=== PATIENT | male | born 1950 | race African-American/Black ===

== ENCOUNTER 2019-05-19 15:50 | Inpatient (IN) | payer OTHER ==
[~2019-05-19] VITALS: Ht 167.6 cm; Wt 99.5 kg
[2019-05-19 15:51] VITALS: BP 151/93
[2019-05-19 16:22] LABS: ABSOLUTE NEUTROPHILS 3.1 thou/uL (1.4-8.2); BASOPHILS 0.5 % (0.0-2.0); EOSINOPHILS 1.3 % (0.0-3.0); HEMOGLOBIN 13.4 gm/dL (14.0-18.0); LYMPHOCYTES 31.1 % (24.0-44.0); MCH 28.9 pg (26.0-34.0); MCHC 32.8 g/dL (28.0-37.0); MONOCYTES 10.2 % (1.0-8.0); PLATELET COUNT 197 thou/uL (150-400); POLYS 56.9 % (36.0-66.0); RBC 4.66 mil/uL (4.50-6.00); RDW 14.4 % (10.5-14.5); WBC 5.4 thou/uL (4.0-11.0)
[2019-05-19 16:30] LABS: URINE BILIRUBIN NEGATIVE (Negative); URINE BLOOD NEGATIVE (Negative); URINE CLARITY CLEAR; URINE COLOR YELLOW; URINE GLUCOSE-RANDOM* NEGATIVE (Negative); URINE KETONES TRACE (Negative); URINE LEUKOCYTES-REFLEX NEGATIVE (Negative); URINE NITRITE-REFLEX NEGATIVE (Negative); URINE PROTEIN (DIPSTICK) NEGATIVE (Negative); URINE UROBILINOGEN 0.2 E.U./dl (0.2-1.0)
[2019-05-19 16:33] LABS: CALCIUM 9.7 mg/dL (8.5-10.1); CREATININE 1.3 mg/dL (0.7-1.3); POTASSIUM 4.4 mmol/L (3.5-5.1)
[2019-05-19 16:38] LABS: AMP/METHAMP Negative (Negative); BARBITURATES Negative (Negative); BENZODIAZEPINES Negative (Negative); COCAINE Negative (Negative); METHADONE Negative (Negative); OPIATES Negative (Negative); PCP Negative (Negative)
[2019-05-19 16:55] VITALS: BP 140/77
[2019-05-19 20:18] VITALS: BP 123/61
[2019-05-19] MEDS ORDERED: DEPAKOTE500 MG PO (20:23)
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
--- NOTE | 2019-05-19 20:59 | NUR ---
BP RECHECK AT 1999 140/84-DENIES THOMAS,VISUAL DISTURBANCE ETC. GAIT SLIGHTLY UNSTEADY DESPITE USE OF ROLLER WALKER-SBA PROVIDED-GIVEN LATE SUPPER-COOPERATIVE AND APPRECIATIVE OF CARES
[2019-05-19 23:00] VITALS: BP 123/61
[2019-05-20] VITALS: BP 123/61
[2019-05-20 03:41] VITALS: BP 123/61
[2019-05-20 08:00] VITALS: BP 135/94
[2019-05-20 09:10] VITALS: BP 135/94
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
[2019-05-20 11:30] LABS: ALBUMIN 3.3 g/dL (3.4-5.0); DIRECT BILIRUBIN < 0.1 mg/dL (<0.1-0.3); SGOT 52 U/L (15-37); SGPT 34 U/L (30-65); TOTAL BILIRUBIN 0.3 mg/dL (<0.1-1.0)
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
--- NOTE | 2019-05-20 13:37 | NUR ---
ASSUMED CARE AT 0700 THIS MORNING. PT. UP ON THE UNIT IN HOSPITAL GOWN WITHOUT PANTS ON. HE KEPT REFUSING TO PUT ON PANTS STATING, "THE NURSE LASTNIGHT NOLD ME TO NOT WEAR ANY". STAFF TRIED TO EXPLAIN TO HIM THAT NIGHT TIME IN BED IS DIFFERENT THAN DAYTIME ON THE UNIT. HE FINALLY PUT PANTS ON. SEVERAL DR.'S HAVE COME TO SEE HIM TODAY. HE CONTINUES TO BE VERY INFLEXIBLE WHEN IT COMES TO THE WAY HE EATS OR WHAT HE IS DOING. HE HAD COMPANY THIS MORNING WHO INFORMED THE STAFF THAT THE PT. NEEDS TO WATCH THE TENNIS TOURNAMENT FROM END TO END. STAFF ATTEMPTED TO TELL THE FAMILY THE PLACE HAS FAMILY VISITS AND GROUPS THAT THE TELEVISION IS TURNED OFF FOR EACH DAY. THE FAMILY MEMBER SEEMED ANNOYED BY THIS. THE PATIENT ATTEMPTED TO FIND THE TENNIS MATCH HIMSELF, BUT WAS UNABLE TO FIND THE TENNIS AT THIS TIME. THE PATIENT WALKS WITH A WALKER WITH A SHUFFLING GAIT, HEAD DOWN. JOYCE SI/HI OR AVH TODAY.
[2019-05-20 19:34] VITALS: BP 156/99
--- NOTE | 2019-05-20 21:56 | NUR ---
ASSUMED CARE OF THE PT AT 1915PM. ALERT ET ORIENTED X 2. HAS A FLAT AFFECT. MAKES NEEDS KNOWN. TOOK HIS HS MEDICATION WITHOUT ANY DIFFICULTY. LATER IN THE EVENING, HE STATED THAT WAS A GOOD TRANQILIZER THAT I GAVE HIM. WALK TO THE DAYROOM, THEN THIS MEDICAL ASSISTANT INTERNAL MEDICINE WALKED HIM BACK TO BED. HEART RATE REGULAR. LUNGS CLEAR BILATERALLY, RESP., EVEN, AND UNLABORED. +BS HEARD IN ALL 4 QUADRANTS. ABD SOFT, THE PT IS SLIGHTLY OBESE. DENIES PAIN AT THIS TIME. REMAINS ON 12 MINUTE CHECKS FOR HIS SAFETY.
--- NOTE | 2019-05-21 02:17 | NUR ---
THE PT WAS UP WALKING IN THE HALLWAY, BACK AND FORTH. STATED THAT HE WAS GETTING HIS EXCERCISE.
[2019-05-21 09:13] VITALS: BP 155/104
[2019-05-21 09:39] VITALS: BP 161/106
--- NOTE | 2019-05-21 10:32 | NUR ---
PATIENT UP ON UNIT THIS MORNING AT CHANGE OF SHIFT. DROWSY - SITTING WITH HEAD DOWN IN CHAIR. AWOKE FOR BREAKFAST. MAKES NEEDS KNOWN. STATED SLEPT 5 HOURS -DENIED ANY S/I - MOOD DETACHED - AFFECT FLAT. RESPONISVE TO QUESTIONS. CALLED FAMILY MEMBER - CONVERSATION WENT WELL - ALERT - AMBULATES WITH WALKER BUT NEEDS REDIRECTION AT TIMES. SHUFFLES FEET - MEDICATION COMPLIANT. REFUSED STOOL SOFTENER - STATES HAD FEW SOFT BOWEL MOVEMENTS. APPETITE GOOD - REFUSED TO PARTICIPATE IN AM ACTIVITY. FIXATED ON TENNIS AND ANNOYED TELEVISION SHUT OFF.
[2019-05-21 19:42] VITALS: BP 148/92
--- NOTE | 2019-05-21 22:26 | NUR ---
Care assumed of patient at 1900: Patient sitting in day room watching PBS at start of shift. Patient pleasant and cooperative with nurse at that time. Patient alert and oriented x4. Patient became agitated when he was asked why he was admitted to the hospital. Patient started to yell saying that the nurses at his facility are rude and don't like him but he is going to christa them so he doesn't care. Patient slouched, relaxed, flat affect. Denies SI/HI/AH/VH. Another peer attempted to grab and fidget with his seated walker. This patient became upset and yelling that people need to be institutionalized and put in penitentiary. Then started to yell at nurse and stating that nurse is incompetent. Patient was able to be re-directed after a couple minutes, sat back on the couch and continued to watch TV. Patient asked to use the phone and was assisted in calling his friend. Patient took medications whole without difficulty. Patient had to be re-directed to leave door cracked open through the night so he could be monitored. Patient has been resting quietly in his room.
[2019-05-22 08:00] VITALS: BP 156/102
--- NOTE | 2019-05-22 10:51 | EKG ---
[place] [address] [facility] [employer] [place] [address] ELECTROCARDIOGRAM REPORT Name: NOY PICKENS Room #: 527- ADM IN M.R.#: [id number] ������������������ Admission: 05/19/19 ������������������ Attend Phys: Dharmesh Kelly DO Discharge: ������������������ Date of : 48 Report #: [id number] ����������������������������������������������������������������� [id number] THIS REPORT FOR: //name// [facility] Test Date: 2019-05-21 Test Time: 11:44:43 Pat Name: NOY PICKENS Department: Room: [facility] Gender: M Legal Director: Milad GOODSON : 1950 Requested By: Dharmesh Kelly Order Number: [id number] MD: Vj Hernández Measurements Intervals [place] Rate: 86 P: 31 MS: 161 QRS: 13 QRSD: 91 T: 36 QT: 374 QTc: 448 Interpretive Statements Sinus rhythm Nonspecific ST segment abnormality No previous ECG available for comparison Electronically Signed On 05-22-2019 10:50:54 CDT by jV Hernández [email or web address] ��������������������������������������������� <ELECTRONICALLY SIGNED> ���������������������������������������� By: Vj Hernández MD, [facility] ��������������������������������������������� 05/22/19 1050 1144 1144 Vj Hernández MD, FACC /EPI
--- NOTE | 2019-05-22 18:37 | NUR ---
ELEVATED BP VIA MACHINE THIS AM 156/102-RECHECKED MANUALLY AND IS 150/90-DENIES THOMAS,VISUAL DISTURBANCE-COREG 12.5MGPO AT 0800-RECHECK AT 1200 148/84. BLUNTED AFFECT-MILD DELAY TO VERBAL RESPONSES. ON PHONE FREQUENTLY-ENJOYS WATCHING SPORTS ON TV. UP USING ROLLER WALKER GAIT IS RAPID,IMPULSIVE AT TIMES
[2019-05-22 19:25] VITALS: BP 152/94
--- NOTE | 2019-05-23 05:20 | NUR ---
Care assumed of patient at 1900: Patient alert and oriented x4. Patient sitting in day room watching TV. Patient compliant with assessment. States that he is concerned about a tennis tournament that will be on TV 05/23/19. Patient stated that his goal is to be more patient and accepting of other staff and peers. Staff member turned on game show for patients to watch. Patient became very irritated. Stated that she had turned on a morbid show, telling the staff member that she has the IQ of an eggplant. Patient re-directed that he could work on a word search or read his books. Patient demanded that the TV be turned on to what he wants to watch only. After multiple attempts, patient was able to be re-directed. Patient then requested to use the phone to call his friend. Staff dialed friends number which went to [facility]. Patient then requested to call another number. Staff asked for phone number which started out [phone]. Staff asked patient who he is calling. Patient stated "the crisis center". When patient was asked why, he stated that he needed help getting to his room. Patient educated that is what the nursing staff is here to do and he does not need to call the crisis center. Patient then stated he was feeling very anxious. Nurse sat and spoke with patient. Patient encouraged and educated that he needed to find a staff member he could speak with to share his thoughts/fears/feelings. Patient was provided scheduled HS medications with PRN Trazodone. Patient was able to sleep for approximately 3 hours then was up about on the unit. Patient speaking to staff in a sarcastic, disrespectful manner. Patient called one staff Delia because he was old and overweight. Patient then told another nurse she was overweight. Patient told the nurse that she was his maid and "get to work". Patient was upset that he was not able to watch TV. Patient re-directed by journaling or reading books. Patient educated on the importance of a good nights sleep and allowing his body to rest. Patient has obsessive tendencies with how he completes ADLs and where things are located in approximity to him. Patient is reading quietly in day room at this time.
[2019-05-23 07:00] VITALS: BP 142/86
[2019-05-23 07:53] VITALS: BP 142/86
--- NOTE | 2019-05-23 10:53 | NUR ---
HAS BEEN VISIBLE IN DAYROOM WATCHING TV THIS WP-NTPYAS-OZ REPORTING POOR SLEEP LAST NIGHT "I HAD A BAD NIGHT" SPEECH SLIGHTLY PRESSURED-DENIES FEELING EXCESS ENERGY OR RACING THOUGHTS-GRANDIOSITY. USING ROLLER WALKER GAIT SLOW BUT STEADY. DENIES C/O PAIN/DISCOMFORT
[2019-05-23 19:30] VITALS: BP 156/87
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
[2019-05-24 08:00] VITALS: BP 143/94
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
--- NOTE | 2019-05-24 12:46 | NUR ---
EDWINA sent d/c notes to [facility]. EDWINA indicated that pt will be d/c on April 26, 2019. EDWINA will follow-up with the [facility] to assist with transportation scheduling.
[2019-05-24 20:19] VITALS: BP 142/97
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
[2019-05-25 07:40] VITALS: BP 158/105
[2019-05-25] MEDS ORDERED: REMERON15 MG PO (15:14)
[2019-05-25] MEDS ORDERED: LIPITOR10 MG PO (15:14)
[2019-05-25] MEDS ORDERED: TYLENOL325 MG PO (15:14)
[2019-05-25] MEDS ORDERED: COREG6.25 MG PO (15:14)
[2019-05-25] MEDS ORDERED: ABILIFY 5 MG TAB5 M1 PO (15:15)
[2019-05-25] MEDS ORDERED: TRAZODONE HCL50 MG PO (15:15)
[2019-05-25] MEDS ORDERED: HYDROXYZINE HCL25 M1 PO (15:16)
[2019-05-25] MEDS ORDERED: CARBIDOPA-LEVO1 EAC9 PO (15:16)
[2019-05-25] MEDS ORDERED: VITAMIN D2000 UNIT PO (15:17)
[2019-05-25] MEDS ORDERED: COLACE 100 MG100 MG PO (15:17)
--- NOTE | 2019-05-25 16:46 | NUR ---
Patient Name: NOY PICKENS Admission Date: 05/19/19 DISCHARGE PLAN: Pt will d/c to [facility]. Care Assessment: Pt was assessed by Dr. Kelly, and diagnosed with Major Neurocognitive Disorder. Level II Assessment: None Transportation: Pt will be transported by [facility] Special Instructions/Notes: Pt will need a memory care unit. DISCHARGE TO FACILITY: Memory care unit Facility: [facility] Fax: Address: [address] [place] [address] [place] Contact Name: ADITHYA PCP: EMMY Primary doctor Psychiatrist: EMMY Psychiatrist
[2019-05-25 16:49] VITALS: BP 138/78
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
== END 2019-05-25 18:10 | DRG 885 ==
LOC: ER 15:50 → SBH 16:37 → EROBS 16:37 → SBH 18:09
PROVIDERS: Emergency Medicine; ADMIT Psychiatry & Neurology Psychiatry
DX: F31.4 Bipolar disorder, current episode depressed, severe, without psychotic features (principal); G31.84 Mild cognitive impairment of uncertain or unknown etiology; E78.5 Hyperlipidemia, unspecified; E66.9 Obesity, unspecified; G20 Parkinson's disease; F41.9 Anxiety disorder, unspecified; K59.09 Other constipation; Z88.2 Allergy status to sulfonamides; Z68.35 Body mass index [BMI] 35.0-35.9, adult
CPT/HCPCS: 10880